=== PATIENT | female | born 1955 | race Caucasian/White ===

== ENCOUNTER 2016-12-06 16:27 | Observation (INO) ==
[2016-12-06] MEDS ORDERED: 0.9 % SODIUM CHLORIDE 2,000 ML IV ONE (16:54)
[2016-12-06] MEDS ORDERED: INSULIN LISPRO 1 UNIT/0.01 ML UNIT SQ ONE ×3 (16:56→17:47)
[2016-12-06] MEDS ORDERED: GLIMEPIRIDE 2 MG TABLET PO ONE (16:57)
[2016-12-06 17:38] LABS: Basophils # (Auto) 0 K/mcL (0.0-0.3); Basophils % (Auto) 0.3 % (0.0-2.0); Eosinophils # (Auto) 0.2 K/mcL (0.0-0.7); Eosinophils % (Auto) 1.5 % (0.0-7.0); Granulocytes % (Auto) 71.5 % (38.0-78.0); Lymphocytes # (Auto) 2.4 K/mcL (1.5-4.8); Lymphocytes % (Auto) 22.2 % (15.5-49.0); Mean Cell Volume 92.1 fL (80.0-100.0); Mean Corpuscular HGB Conc 33.5 g/dL (31.0-36.0); Mean Corpuscular Hemoglobin 30.8 pg (26.0-34.0); Monocytes # (Auto) 0.5 K/mcL (0.1-0.9); Monocytes % (Auto) 4.5 % (1.0-12.0); Platelet Count 230 K/mcL (140-440); RBC 4.91 M/mcL (4.00-5.20); Red Cell Distribution Width 12.2 % (11.5-14.5)
[2016-12-06 18:08] LABS: ALT/SGPT 9 U/l (0-40); Albumin 4.5 gm/dL (3.2-5.2); Albumin/Globulin Ratio 1.7 (1.0-2.3); Alkaline Phosphatase 94 U/L (39-117); Amylase 23 U/L (28-100); Blood Urea Nitrogen 21 mg/dl (8-23); Estimated Average Glucose(eAG) 260 mg/dL; Hemoglobin A1C 10.7 % HGB (4.0-6.0); Lipase 32 U/L (7-60)
--- NOTE | 2016-12-06 18:43 | Emergency Department Note ---
General Adult HPI - General Chief complaint: Blood Sugar Problem Stated complaint: High blood sugar Time Seen by Provider: 12/06/16 16:54 Source: patient Mode of arrival: ambulatory Limitations: no limitations - History of Present Illness HPI Narrative: 61-year-old female comes in at direction of her doctor because of blood sugar over 500 . Notes increased urination and polydipsia. She is having nausea dizziness and weakness. No vomiting or diarrhea, no upper respiratory symptoms chest pain or other concerning features. She has known type 2 diabetes but is only on metformin 500 once a day. She is currently doing physical therapy for some shoulder issue - Related Data Home Medications Medication Instructions Recorded Confirmed Baclofen [Lioresal] 20 mg PO TIDP PRN 02/26/16 12/06/16 DULoxetine HCL [Cymbalta] 60 mg PO DAILY 02/26/16 12/06/16 Divalproex Sodium [Depakote ER] 250 mg PO HS 02/26/16 12/06/16 Divalproex Sodium [Depakote] 500 mg PO BID 02/26/16 12/06/16 Levothyroxine Sodium [Levoxyl] 88 mcg PO DAILY 02/26/16 12/06/16 Lisinopril [Zestril] 2.5 mg PO HS 02/26/16 12/06/16 Pravastatin [Pravachol] 40 mg PO HS 02/26/16 12/06/16 Propranolol [Inderal] 20 mg PO BID 02/26/16 12/06/16 lamoTRIgine [LaMICtal] 150 mg PO BID 02/26/16 12/06/16 metFORMIN [Glucophage] 500 mg PO DAILY 02/26/16 12/06/16 traMADol [Ultram] 50 mg PO Q6HP PRN 02/26/16 12/06/16 Methylphenidate HCl 5 mg PO TID 12/06/16 12/06/16 clonazePAM [Clonazepam] 0.5 mg SL DAILY 12/06/16 12/06/16 Previous Rx's Medication Instructions Recorded HYDROcodone/APAP 5/325MG [[place] 1 tab PO Q6HP PRN #10 tablet 02/26/16 5/325Mg] Allergies Allergy/AdvReac Type Severity Reaction Status Date / Time Penicillins Allergy Unknown UNKOWN Verified 12/06/16 16:32 Sulfa (Sulfonamide Allergy Unknown UNKOWN Verified 12/06/16 16:32 Antibiotics) oxybutynin Allergy Verified 12/06/16 16:32 No to Iodine Allergy Unknown Unknown Uncoded 02/08/15 19:35 No to Latex Allergy Unknown Uncoded 02/08/15 19:35 Review of Systems All systems ED: reviewed and negative except as stated. Past Medical History - Past Medical History Attestation: Yes: The following information was validated with the patient. Medical history: Reports: diabetes, hyperlipidemia, hypertension, thyroid disease Surgical history ED: Reports: , cholecystectomy, knee replacement, orthopedic, other (knee surgery and carpal tunnel) Psychiatric history: Reports: bipolar, other (narcolepsy) - Social History smoking status: Current every day smoker Alcohol use: Reports: Rarely Physical Exam Overweight female no acute distress. Normocephalic atraumatic. Conjunctiva clear sclerae anicteric. No nasal discharge or congestion. Oropharynx is pink and moist. Neck is supple without lymphadenopathy thyromegaly or carotid bruit. Heart is regular rate and rhythm no murmurs appreciated. Lungs are clear to auscultation bilaterally without wheezes rales rhonchi or respiratory distress. Abdomen soft nontender nondistended. No peritoneal signs or guarding. No pedal edema. +2 radial pulse. Alert and oriented. No dysarthria ataxia or tremor - General Limitations: no limitations Course Vital Signs Temperature 97.4 F L 12/06/16 16:28 Pulse Rate 75 12/06/16 16:28 Respiratory Rate 20 12/06/16 16:28 Blood Pressure 133/63 12/06/16 16:28 Pulse Oximetry (%) 97 12/06/16 16:28 Temperature 97.4 F L 12/06/16 16:28 Pulse Rate 65 12/06/16 18:24 Respiratory Rate 20 12/06/16 16:28 Blood Pressure 135/65 12/06/16 18:24 Pulse Oximetry (%) 96 12/06/16 18:24 Medical Decision Making - Lab Data Lab results reviewed: Yes I reviewed the patient's lab results. Result diagrams: 12/06/16 17:02 12/06/16 17:02 Lab Results 12/06/16 12/06/16 Range/Units 17:02 17:02 WBC 10.7 (4.5-11.0) K/mcL RBC 4.91 (4.00-5.20) M/mcL Hgb 15.1 H (12.0-15.0) g/dL Hct 45.2 (36.0-48.0) % MCV 92.1 (80.0-100.0) fL MCH 30.8 (26.0-34.0) pg MCHC 33.5 (31.0-36.0) g/dL RDW 12.2 (11.5-14.5) % Plt Count 230 (140-440) K/mcL MPV 9.5 (7.4-10.4) fL Gran % 71.5 (38.0-78.0) % Lymph % (Auto) 22.2 (15.5-49.0) % [place] % (Auto) 4.5 (1.0-12.0) % Eos % (Auto) 1.5 (0.0-7.0) % Baso % (Auto) 0.3 (0.0-2.0) % Gran # 7.7 (1.8-8.0) K/mcL Lymph # 2.4 (1.5-4.8) K/mcL [place] # 0.5 (0.1-0.9) K/mcL Eos # 0.2 (0.0-0.7) K/mcL Baso # 0 (0.0-0.3) K/mcL Sodium 131 L (133-145) mmol/L Potassium 4.5 (3.3-5.1) mmol/L Chloride 89 L (96-108) mmol/L Carbon Dioxide 20 L (22-30) mmol/L Anion Gap 22.0 H (8-16) BUN 21 (8-23) mg/dl Creatinine 0.9 (0.6-1.1) mg/dl GFR Calculation 69 Glucose 485 H* (70-105) mg/dL Hemoglobin A1c 10.7 H (4.0-6.0) % HGB Estim Average Glucose 260 mg/dL Calcium 9.8 (8.6-10.4) mg/dl Total Bilirubin 0.3 (0.0-1.0) mg/dL AST 17 (0-37) U/l ALT 9 (0-40) U/l Alkaline Phosphatase 94 (39-117) U/L Total Protein 7.2 (5.9-8.4) gm/dL Albumin 4.5 (3.2-5.2) gm/dL Globulin 2.7 (2.2-3.7) gm/dL Albumin/Globulin Ratio 1.7 (1.0-2.3) Amylase 23 L (28-100) U/L Lipase 32 (7-60) U/L arterial blood gas showed pH 7.39 PCO2 41 PO2 68 Disposition Clinical Impression: Hyperosmolar non-ketotic state in patient with type 2 diabetes mellitus, Hyponatremia Summary: Initial workup done with limited laboratory as patient's vital signs were stable and she was just feeling mildly ill. We initiated treatment for hyperglycemia with 5 units of Humalog, IV normal saline and started on glimepiride as she is insulin franklyn. She did have metformin this morning Her blood sugar only came down into the 400s with 5 units on recheck approximately an hour later, and so I gave her another 7 units. She received approximately 3 liters of normal saline during her stay in the ER Laboratory however shows hyperglycemia with significant electrolyte abnormalities consistent with hyperosmolar nonketotic state- her vital signs are stable but electrolyte abnormalities including hyponatremia and low bicarbonate are concerning. Her anion gap is elevated. ABG shows compensation and mild hypoxia. However in order to correct her blood sugar and electrolytes it will take some time- the patient is agreeable to coming in the hospital to sort this out and get her feeling better Discussed her case with Dr. Khan who agreed to accept the patient for further care- further workup and treatment per his direction Disposition: Xfer As Inpt ([facility]) Condition: Fair Referrals: Sandra Blake ARNP [Primary Care Provider] - Gemma Khan MD [Physician] -
--- NOTE | 2016-12-06 18:51 | XRay Report ---
CLINICAL INFORMATION: Hyperglycemia question infection COMPARISON: 11/21/2005 FINDINGS:The heart size, mediastinum and pulmonary vessels are unremarkable. The lungs are clear. There are no effusions. The bones and soft tissues are within normal limits. IMPRESSION: Normal chest. Interpreted and Authenticated by: Armando Hernandez 12/06/16
[2016-12-06 19:22] LABS: Appearance,Urine CLEAR; Bacteria,Urine 0 /hpf (0); Bilirubin,Urine NEG (NEG); Color,Urine STRAW; Glucose,Urine (UA) >=500 mg/dL (NEG); Leukocyte Esterase,Urine NEG /uL (NEG); Nitrate,Urine NEG (NEG); Protein,Urine NEG (NEG); Specific Gravity,Urine 1.031 (1.000-1.035); Urine Blood 0.03 mg/dL (<0.03); Urine Budding Yeast FEW /hpf (0); Urine RBC 2 /hpf (0-1); Urine Squamous Epithelial Cell 0 /hpf (0-4); Urine WBC 3 /hpf (0-4); Urobilinogen,Urine NEG (NEG)
--- NOTE | 2016-12-06 19:34 | Internal Med History&Physical ---
Medical - H&P: HPI Patient information: Note initiated : 12/06/16 at 7:31 pm Service Date, if different from initiated Date: [] Patient: Korina Ashley a 61 y/o F admitted on for High blood sugar. Chief Complaint: [] History of present illness: Ms. Ashley is a 61 year old female who presents to the ER because she was not feeling well since this AM. The patient has h/o DM, diagnosed over 10 yrs ago, and is on metformin 500mg qd. She notes that her glucose has been very well controlled and AM sugars were around 60-70, and PM around 140-160. Her last a1c was around 8-9 and before that between 6-7. This , she noted that her glucose level was > 500, she reviewed this with her PCP and was supposed to keep check and follow up with her pcp on thursday. She did run out of her testing strips unfortunately and did not know what her sugars were. She notes her glucose was slowly creeping up over the last 1-2 weeks. She was very thirsty over the last few days and therefore drank nearly gallon of juice and gallon of Milk. The patient this AM was not feeling well, nauseas and weak, with polyuria and polydipsia. She therefore presented to the ER for further evaluation. In the ER her glucose was > 500, Gap 22, elevated hydroxybutyrate 4.46, Positive ketones in the urine, A1c 10.6. Na 131. She was given IV Fluids and insulin and glimepiride and admitted to the hospital for further management. The patient notes she may have had a viral syndrome 2 weeks ago, but beyond that does not remember having any fevers or cough. She denies any new medication, last medication is methylphenidiate for narcolepsy around 6 months ago. ABG done in the ER after fluid resusitation and insulin showed ph 7.39/pco2 41/ po2 68, / bicarb 24 UA not suggestive of infection and X ray chest negative. Review of systems: CONSTITUTIONAL: No weight loss, fever, chills, but present weakness and fatigue. HEENT: Eyes: No visual loss, blurred vision, double vision or yellow sclerae. Ears, Nose, Throat: No hearing loss, sneezing, congestion, runny nose or sore throat. SKIN: No rash or itching. CARDIOVASCULAR: No chest pain, chest pressure or chest discomfort. No palpitations or edema. RESPIRATORY: No shortness of breath, cough or sputum. GASTROINTESTINAL: No anorexia, nausea, vomiting or diarrhea. No abdominal pain or blood. GENITOURINARY: Denies Burning on urination. Blood in urine, or foul smelling urine NEUROLOGICAL: No headache, dizziness, syncope, paralysis, tremors, numbness or tingling in the extremities. No change in bowel or bladder control. MUSCULOSKELETAL: Chr muscle, back pain, joint pain or stiffness. HEMATOLOGIC: No bleeding or bruising. No enlarged nodes PSYCHIATRIC: present history of depression or anxiety. ENDOCRINOLOGIC: No reports of sweating, cold or heat intolerance. BUT present polyuria and polydipsia. ALLERGIES: No history of asthma, hives, eczema or rhinitis. Medical - H&P: PMH Medical history: PMH DM Mucle aches Bipolar disorder Anxiety Narcolepsy HTN HLD Surgical history: C section cholecystectomy Rt TKA Left knee arthroscopy Pertinent family history: Mother, Sister DM, Dad likely had DM Mother with lukaemia and CHF. Social history: Smoker 22-24 Pack yr Denies etoh, recreational drug use. Medical - H&P: Meds Home Medications Medication Instructions Recorded Confirmed Type Baclofen [Lioresal] 20 mg PO TIDP PRN 02/26/16 12/06/16 History DULoxetine HCL [Cymbalta] 60 mg PO DAILY 02/26/16 12/06/16 History Divalproex Sodium [Depakote ER] 250 mg PO HS 02/26/16 12/06/16 History Divalproex Sodium [Depakote] 500 mg PO BID 02/26/16 12/06/16 History HYDROcodone/APAP 5/325MG [[place] 1 tab PO Q6HP PRN #10 tablet 02/26/16 12/06/16 Rx 5/325Mg] Levothyroxine Sodium [Levoxyl] 88 mcg PO DAILY 02/26/16 12/06/16 History Lisinopril [Zestril] 2.5 mg PO HS 02/26/16 12/06/16 History Pravastatin [Pravachol] 40 mg PO HS 02/26/16 12/06/16 History Propranolol [Inderal] 20 mg PO BID 02/26/16 12/06/16 History lamoTRIgine [LaMICtal] 150 mg PO BID 02/26/16 12/06/16 History metFORMIN [Glucophage] 500 mg PO DAILY 02/26/16 12/06/16 History traMADol [Ultram] 50 mg PO Q6HP PRN 02/26/16 12/06/16 History Methylphenidate HCl 5 mg PO TID 12/06/16 12/06/16 History clonazePAM [Clonazepam] 0.5 mg SL DAILY 12/06/16 12/06/16 History Allergies Allergy/AdvReac Type Severity Reaction Status Date / Time Penicillins Allergy Unknown UNKOWN Verified 12/06/16 16:32 Sulfa (Sulfonamide Allergy Unknown UNKOWN Verified 12/06/16 16:32 Antibiotics) oxybutynin Allergy Verified 12/06/16 16:32 No to Iodine Allergy Unknown Unknown Uncoded 02/08/15 19:35 No to Latex Allergy Unknown Uncoded 02/08/15 19:35 Medical - H&P: Exam - Constitutional Vitals: Temp Pulse Resp BP Pulse Ox 97.4 F L 65 20 135/65 96 12/06/16 16:28 12/06/16 18:24 12/06/16 16:28 12/06/16 18:24 12/06/16 18:24 Exam: GENERAL: The patient is a well-developed, well-nourished in no apparent distress. Is alert and oriented x3. VITAL SIGNS: Reviewed and as noted elsewhere. HEENT: Head is normocephalic and atraumatic. Extraocular muscles are intact. Pupils are equal, round, and reactive to light. Nares appeared normal. Mouth is well hydrated and without lesions. Mucous membranes are dry. NECK: Normal to inspection, Supple, No lymphadenopathy or thyromegaly. LUNGS: Air entry equal on both sides, no wheezing, crackles or rhonchi noted. No accessory muscles of respiration HEART: Regular rate and rhythm normal, S1 and S2 heard, no Gallop, S3 or Rub Noted, No Gross murmur heard. ABDOMEN: Soft, nontender, and nondistended. Positive bowel sounds. No hepatosplenomegaly was noted. EXTREMITIES: Without any cyanosis, clubbing, rash, lesions or edema. NEUROLOGIC: Cranial nerves II through XII are grossly intact. Motor and Sensory System Grossly Intact PSYCHIATRIC: Flat affect, but denies suicidal or homicidal ideations. SKIN: No ulceration or induration present. Medical - H&P: Reslt - Labs CBC & Chem 7: 12/06/16 17:02 12/06/16 17:02 Labs: Short CBC 12/06/16 Range/Units 17:02 WBC 10.7 (4.5-11.0) K/mcL Hgb 15.1 H (12.0-15.0) g/dL Hct 45.2 (36.0-48.0) % Plt Count 230 (140-440) K/mcL BMP 12/06/16 17:02 Sodium 131 L Potassium 4.5 Chloride 89 L Carbon Dioxide 20 L BUN 21 Creatinine 0.9 Glucose 485 H* Calcium 9.8 Liver Function 12/06/16 Range/Units 17:02 Total Bilirubin 0.3 (0.0-1.0) mg/dL AST 17 (0-37) U/l ALT 9 (0-40) U/l Alkaline Phosphatase 94 (39-117) U/L Albumin 4.5 (3.2-5.2) gm/dL Urine 12/06/16 Range/Units 18:35 Urine Color Straw Urine Appearance Clear Urine pH 5.0 (5.0-9.0) Ur Specific [place] 1.031 (1.000-1.035) Urine Protein Neg (NEG) mg/dL Urine Glucose (UA) >=500 A (NEG) mg/dL - ABG Interpretation Interpretation: normal Medical - H&P: A/P (1) Hyponatremia Current visit: Yes Status: Acute - Narrative A/P Narrative: Mild Diabetic Ketoacidosis Resolved in the ER Pseudo Hyponatremia Uncontrolled DM HTN HLD Narcolepsy Bipolar Disorder. This is a 61 yr pt with long standing DM, which as per the patient was in the past fairly well controlled, but now apparently has become uncontrolled Her A1c is > 10 She presents in the ER with mild DKA (elevated beta hydroxybutyrate/ Urine ketones) , which has now resolved, normal ABG, normal bicarb on abg, glucose < 300. Will observe her overnight and monitior glucose Resume oral diet Start on sulfonylureas, 1st dose given in the ER. Increase dose of metformin to 1000mg bid Etiology of sudden worsening of Glucose control unknown, no e/o infectious focus , The only medication change is Ritalin added 6 months ago. Resume home medications for other chr condition DVT hep sq Diet Diabetic Code full DM education as outpatient.
[2016-12-06] MEDS ORDERED: traMADol 50 MG TABLET PO PRN (19:43)
[2016-12-06] MEDS ORDERED: BACLOFEN 10 MG TABLET PO PRN (19:43)
[2016-12-06] MEDS ORDERED: ONDANSETRON 4 MG/2 ML VIAL IV PRN (19:43)
[2016-12-06] MEDS ORDERED: HYDROcodone/APAP 5/325MG TABLET PO PRN (19:43)
[2016-12-06] MEDS ORDERED: ACETAMINOPHEN 325 MG TABLET PO PRN (19:43)
[2016-12-06] MEDS ORDERED: DEXTROSE 50% 50 ML VIAL IV PRN (19:43)
[2016-12-06] MEDS: 0.9 % SODIUM CHLORIDE 1,000 ML IV SCH (19:51)
[2016-12-06] MEDS ORDERED: DIVALPROEX SODIUM 250 MG TAB.ER.24H PO SCH (21:00)
[2016-12-06] MEDS ORDERED: lamoTRIgine 150 MG TABLET PO SCH (21:00)
[2016-12-06] MEDS ORDERED: PROPRANOLOL 20 MG TABLET PO SCH (21:00)
[2016-12-06 21:03] LABS: Blood Urea Nitrogen 17 mg/dl (8-23)
[2016-12-06] MEDS: HEPARIN 5,000 UNIT/ML VIAL SQ SCH (22:55)
[2016-12-06] MEDS: NON FORMULARY MEDICATION 1 DOSE MISCELL (Divalproex Sodium [Depakote] 500 MG) PO SCH (22:55)
[2016-12-06] MEDS: FAMOTIDINE/PF 20 MG/2 ML VIAL IV SCH (22:56)
[2016-12-06] MEDS: INSULIN LISPRO 1 UNIT/0.01 ML UNIT SQ SCH (22:56)
[2016-12-06] MEDS: LISINOPRIL 5 MG TABLET PO SCH (22:57)
[2016-12-06] MEDS: SIMVASTATIN 20 MG TABLET PO SCH (22:57)
[2016-12-06] MEDS: 0.9 % SODIUM CHLORIDE 10 ML SYRINGE IV SCH (22:57)
[2016-12-07] MEDS: 0.9 % SODIUM CHLORIDE 1,000 ML IV SCH ×3 (03:53→19:03)
[2016-12-07] MEDS ORDERED: INSULIN LISPRO 1 UNIT/0.01 ML UNIT SQ ONE ×2 (04:02→17:47)
[2016-12-07 05:07] LABS: Mean Cell Volume 92.6 fL (80.0-100.0); Mean Corpuscular HGB Conc 34.1 g/dL (31.0-36.0); Mean Corpuscular Hemoglobin 31.6 pg (26.0-34.0); Platelet Count 184 K/mcL (140-440); RBC 4.17 M/mcL (4.00-5.20); Red Cell Distribution Width 12.2 % (11.5-14.5)
[2016-12-07 05:30] LABS: ALT/SGPT 6 U/l (0-40); Albumin 3.4 gm/dL (3.2-5.2); Albumin/Globulin Ratio 1.7 (1.0-2.3); Alkaline Phosphatase 70 U/L (39-117); Bilirubin,Direct < 0.2 mg/dL (0.0-0.3); Blood Urea Nitrogen 15 mg/dl (8-23); Gamma Glutamyl Transpeptidase 58 U/L (5-36); Magnesium 1.8 mg/dL (1.6-2.5); Uric Acid 4.6 mg/dL (2.5-8.0)
[2016-12-07] MEDS: 0.9 % SODIUM CHLORIDE 10 ML SYRINGE IV SCH ×3 (05:54→22:39)
[2016-12-07 06:44] LABS: Lymphocytes % 43 % (15-49); Monocytes % (Manual) 4 % (1-9); Platelet Estimate NORMAL (NORMAL); RBC Morphology NORMAL (NORMAL); Segmented Neutrophils % 53 % (38-78)
[2016-12-07] MEDS: LEVOTHYROXINE 88 MCG TABLET PO SCH (08:03)
[2016-12-07] MEDS: metFORMIN 500 MG TABLET PO SCH ×2 (08:03→17:12)
[2016-12-07] MEDS: glipiZIDE 2.5 MG TAB.XL.24H PO SCH (08:03)
[2016-12-07] MEDS: INSULIN LISPRO 1 UNIT/0.01 ML UNIT SQ SCH ×4 (08:44→21:16)
[2016-12-07] MEDS: FISH OIL 1,000 MG CAPSULE PO SCH ×2 (09:37→21:15)
[2016-12-07] MEDS: DULoxetine 30 MG CAPSULE PO SCH (09:37)
[2016-12-07] MEDS: FAMOTIDINE/PF 20 MG/2 ML VIAL IV SCH ×2 (09:37→21:16)
[2016-12-07] MEDS: HEPARIN 5,000 UNIT/ML VIAL SQ SCH ×2 (09:37→21:16)
[2016-12-07] MEDS: lamoTRIgine 100 MG TABLET PO SCH ×2 (09:37→21:16)
[2016-12-07] MEDS: clonazePAM 0.5 MG TABLET PO SCH (09:38)
[2016-12-07] MEDS: PROPRANOLOL 10 MG TABLET PO SCH ×2 (09:38→21:17)
[2016-12-07] MEDS: NON FORMULARY MEDICATION 1 DOSE MISCELL (Divalproex Sodium [Depakote] 500 MG) PO SCH (10:03)
--- NOTE | 2016-12-07 12:36 | Internal Med Progress Note ---
Medical - PN: Subj Patient information: Note initiated : 12/07/16 at 12:34 pm Service Date, if different from initiated Date: [] Patient: Korina Ashley a 61 y/o F admitted on 12/06/16 for High blood sugar. Chief Complaint: [] Interval history: 12/06/16 Ms. Ashley is a 61 year old female who presents to the ER because she was not feeling well since this AM.The patient has h/o DM, diagnosed over 10 yrs ago, and is on metformin 500mg qd. She notes that her glucose has been very well controlled and AM sugars were around 60-70, and PM around 140-160. Her last a1c was around 8-9 and before that between 6-7. This , she noted that her glucose level was > 500, she reviewed this with her PCP and was supposed to keep check and follow up with her pcp on thursday. She did run out of her testing strips unfortunately and did not know what her sugars were. She notes her glucose was slowly creeping up over the last 1-2 weeks. She was very thirsty over the last few days and therefore drank nearly gallon of juice and gallon of Milk. The patient this AM was not feeling well, nauseas and weak, with polyuria and polydipsia. She therefore presented to the ER for further evaluation. In the ER her glucose was > 500, Gap 22, elevated hydroxybutyrate 4.46, Positive ketones in the urine, A1c 10.6. Na 131. She was given IV Fluids and insulin and glimepiride and admitted to the hospital for further management. The patient notes she may have had a viral syndrome 2 weeks ago, but beyond that does not remember having any fevers or cough. She denies any new medication, last medication is methylphenidiate for narcolepsy around 6 months ago. ABG done in the ER after fluid resusitation and insulin showed ph 7.39/pco2 41/ po2 68, / bicarb 24 UA not suggestive of infection and X ray chest negative. 4/2 pt seen examined, doing well, able to tolerate po, but was feeling weak and dizzy this AM, she noted that she was nauseas this AM wondering if this was side effect of sudden dropping of blood glucose. No vomiting. Otherwise labs look ok, glucose ok, will monitor her on higher dose of metformin x 1 day and see how she does with glipizide. Pertinent ROS: Denies headache, dizziness Denies chest pain, palpitations Denies cough or shortness of breath Denies abdominal pain, present nausea but no vomiting. - Constitutional Vitals: Vital Signs Temp Pulse Resp BP Pulse Ox 96.3 F L 64 16 135/65 95 12/07/16 11:29 12/07/16 11:29 12/07/16 11:29 12/07/16 11:29 12/07/16 11:29 Period Temp Pulse Resp BP Sys/Loving Pulse Ox Last 24 Hr 96.3 F-97.9 F 63-65 16-16 104-156/58-84 95-97 Intake and Output 12/06/16 12/07/16 12/07/16 21:59 05:59 13:59 Intake Total 1650 / 1650 1860 / 1860 Output Total 150 / 150 1150 / 1150 400 / 400 Balance -150 / 1850 500 / 500 1460 / 1460 Weight 152 lb 9.6 oz Intake & Output: Intake & Output 12/06/16 12/07/16 12/07/16 21:59 05:59 13:59 Intake Total 1650 / 1650 1860 / 1860 Output Total 150 / 150 1150 / 1150 400 / 400 Balance -150 / 1850 500 / 500 1460 / 1460 Weight 152 lb 9.6 oz Intake: IV 1000 / 1000 1000 / 1000 Sodium Chloride 0.9% 1, 1000 / 1000 1000 / 1000 000 ml @ 125 mls/hr IV . Q8H [facility] Rx#:[id number] Oral 650 / 650 860 / 860 Output: Void Amount 150 / 150 1150 / 1150 400 / 400 Other: Meal tuna fish sandwich, tomato soup, crackers Breakfast Percent of Meal Consumed 100% 100% Feeding Ability Independent Exam: Constitutional; Afebrile, cooperative, alert, not in distress. Eyes- No icterus, Pupils equal, reactive, No periorbital swelling Ears- Ext ear normal, hearing normal to conversation. Neck- Midline trachea, supple Respiratory system: Air Entry equal on both sides, No crackles or wheezing, no rhonchi. CVS- Rate rhythm regular, S1,S2 heard, no gallop, no rub. Abdomen- Soft nontender abdomen, no organomegaly, no tenderness, no guarding or rigidity, [employer]- AOOx3, moving all extremities, no focal deficit noted. Medical - PN: Obj Da - Labs CBC & Chem 7: 12/07/16 03:48 12/07/16 03:48 Labs: Abnormal Lab Results 12/07/16 12/07/16 12/06/16 03:48 03:48 20:06 WBC Morphology Abnorm A Vacuolated Monocytes 1+ A Carbon Dioxide 21 L Glucose 261 H 201 H Calcium 8.2 L 8.5 L Phosphorus 2.6 L GGT 58 H Total Protein 5.4 L Globulin 2.0 L Triglycerides 555 H Meds: Medications Acetaminophen (Tylenol) 650 mg PO Q6HP PRN PRN Reason: PAIN/FEVER > 101 Last Admin: 12/07/16 03:55 Dose: 650 mg Acetaminophen/Hydrocodone Bitart ([place] 5/325mg) 1 tab PO Q6HP PRN PRN Reason: Pain Baclofen (Lioresal) 20 mg PO TIDP PRN PRN Reason: Pain Clonazepam (Klonopin) 0.5 mg PO DAILY [facility] Last Admin: 12/07/16 09:38 Dose: 0.5 mg Dextrose (Dextrose 50%) 0 ml IV UD PRN PRN Reason: Hypoglycemia Diagnostic Test (Pha) (Accu-Chek) 1 each FS ACHS [facility] Last Admin: 12/07/16 11:55 Dose: 1 each Divalproex Sodium (Depakote Er) 750 mg PO HS REG Duloxetine HCl (Cymbalta) 60 mg PO DAILY [facility] Last Admin: 12/07/16 09:37 Dose: 60 mg Famotidine (Pepcid) 20 mg IV Q12 REG Last Admin: 12/07/16 09:37 Dose: 20 mg Fish Oil (Fish Oil) 1,000 mg PO BID [facility] Last Admin: 12/07/16 09:37 Dose: 1,000 mg Glipizide (Glucotrol Xl) 2.5 mg PO ACB [facility] Last Admin: 12/07/16 08:03 Dose: 2.5 mg Heparin Sodium (Porcine) (Heparin) 5,000 unit SQ Q12 REG Last Admin: 12/07/16 09:37 Dose: 5,000 unit Sodium Chloride (Sodium Chloride 0.9%) 1,000 mls @ 125 mls/hr IV .Q8H [facility] Last Admin: 12/07/16 11:56 Dose: 125 mls/hr Insulin Human Lispro (Humalog) 0 unit SQ ACHS [facility] PRN Reason: Protocol Last Admin: 12/07/16 08:44 Dose: 2 unit Lamotrigine (Lamictal) 150 mg PO BID [facility] Last Admin: 12/07/16 09:37 Dose: 150 mg Levothyroxine Sodium (Synthroid) 88 mcg PO QAMAC [facility] Last Admin: 12/07/16 08:03 Dose: 88 mcg Lisinopril (Zestril) 2.5 mg PO [facility] Last Admin: 12/06/16 22:57 Dose: 2.5 mg Metformin [facility] ([facility]) [facility] Last Admin: 12/07/16 08:03 Dose: 1,000 mg Ondansetron HCl (Zofran) 4 mg IV Q6HP PRN PRN Reason: Nausea And Vomiting Methylphenidate Hcl (5 Mg Tab) 1 dose PO TID [facility] Last Admin: 12/07/16 09:46 Dose: Not Given Propranolol HCl (Inderal) 20 mg PO BID [facility] Last Admin: 12/07/16 09:38 Dose: 20 mg Simvastatin (Zocor) 20 mg PO [facility] Last Admin: 12/06/16 22:57 Dose: 20 mg Sodium Chloride (Saline Flush) 10 ml IV Q8 [facility] Last Admin: 12/07/16 12:08 Dose: Not Given Tramadol HCl (Ultram) 50 mg PO Q6HP PRN PRN Reason: Pain Medical - PN: A/P - Time Spent With Patient Total time spent is greater than 50% in coordination of care (as documented) at patient's floor/unit and/or counseling patient: (1) Hyponatremia Status: Acute Current Visit: Yes - Narrative A/P Narrative: Mild Diabetic Ketoacidosis Resolved in the ER Pseudo Hyponatremia, resolved Uncontrolled DM increased dose of metformin to 1gm bid, and add glipizide. May need to cut back metformin if unable to tolerate 1gm HTN BP ok, resume home meds HLD continue statin. Narcolepsy on methyl phenidate, resume home dose as appropriate. Bipolar Disorder. resume home meds. Nausea: Likely from drop in glucose, keep on h2 blockers, ondansetron prn. DVT hep sq Diet Diabetic Code full DM education as outpatient. Medical - PN: Qual - VTE Deep Vein Thrombosis/Pulmonary Embolism Present on Admission: No
[2016-12-07] MEDS ORDERED: DIVALPROEX SODIUM 250 MG TAB.ER.24H PO SCH (21:00)
[2016-12-07] MEDS: LISINOPRIL 5 MG TABLET PO SCH (21:15)
[2016-12-07] MEDS: SIMVASTATIN 20 MG TABLET PO SCH (21:15)
[2016-12-08] MEDS: 0.9 % SODIUM CHLORIDE 1,000 ML IV SCH ×2 (03:10→12:07)
[2016-12-08] MEDS: 0.9 % SODIUM CHLORIDE 10 ML SYRINGE IV SCH (04:24)
[2016-12-08] MEDS ORDERED: glipiZIDE 5 MG TABLET PO SCH (07:30)
[2016-12-08] MEDS: DULoxetine 30 MG CAPSULE PO SCH (07:41)
[2016-12-08] MEDS: clonazePAM 0.5 MG TABLET PO SCH (07:42)
[2016-12-08] MEDS: metFORMIN 500 MG TABLET PO SCH (07:43)
[2016-12-08] MEDS: lamoTRIgine 100 MG TABLET PO SCH (07:43)
[2016-12-08] MEDS: FAMOTIDINE/PF 20 MG/2 ML VIAL IV SCH (07:44)
[2016-12-08] MEDS: FISH OIL 1,000 MG CAPSULE PO SCH (07:44)
[2016-12-08] MEDS: HEPARIN 5,000 UNIT/ML VIAL SQ SCH (07:44)
[2016-12-08] MEDS: glipiZIDE 2.5 MG TAB.XL.24H PO SCH (07:45)
[2016-12-08] MEDS: PROPRANOLOL 10 MG TABLET PO SCH (07:45)
[2016-12-08] MEDS: LEVOTHYROXINE 88 MCG TABLET PO SCH (07:47)
[2016-12-08] MEDS: INSULIN LISPRO 1 UNIT/0.01 ML UNIT SQ SCH ×2 (08:40→12:07)
--- NOTE | 2016-12-08 11:11 | Discharge Summary ---
Medical - DS: Prov Patient information: Note initiated : 12/08/16 at 11:05 am Service Date, if different from initiated Date: [] Patient: Korina Ashley 61 y/o F admitted on 12/06/16 for High blood sugar. Chief Complaint: [] Date of admission: 12/06/16 19:41 Discharge date: 12/08/16 Primary care physician: [f_Reg Prim Care Provider] Admitting clinician: Gemma Khan Discharging clinician: Gemma Khan Medical - DS: Meds - Discharge Medications Prescriptions: Fish Oil 1,000 mg PO BID #60 capsule glipiZIDE [Glucotrol] 5 mg PO BIDAC #60 tablet metFORMIN HCL [Glucophage] 1,000 mg PO BIDAC #60 tablet Active and Home Medications: Home Medications Baclofen [Lioresal] 20 mg PO QHS 02/26/16 [History Confirmed 12/06/16 Last Taken 12/05/16 21:00] DULoxetine HCL [Cymbalta] 60 mg PO DAILY 02/26/16 [History Confirmed 12/06/16 Last Taken 12/06/16 08:00] Divalproex Sodium [Depakote ER] 250 mg PO HS 02/26/16 [History Confirmed Last Taken 12/05/16 21:00] HYDROcodone/APAP 5/325MG [[place] 5/325Mg] 1 tab PO Q6HP PRN #10 tablet 02/26/16 [ Rx Confirmed 12/06/16 Last Taken 11/08/16] Levothyroxine Sodium [Levoxyl] 88 mcg PO DAILY 02/26/16 [History Confirmed 12/06 Last Taken 12/06/16 08:00] Lisinopril [Zestril] 2.5 mg PO DAILY 02/26/16 [History Confirmed 12/06/16 Last Taken 12/06/16 08:00] Pravastatin [Pravachol] 40 mg PO HS 02/26/16 [History Confirmed 12/06/16 Last Taken 12/05/16 21:00] Propranolol [Inderal] 20 mg PO BID 02/26/16 [History Confirmed 12/06/16 Last Taken 12/06/16 08:00] lamoTRIgine [LaMICtal] 150 mg PO BID 02/26/16 [History Confirmed 12/06/16 Last Taken 12/06/16 08:00] metFORMIN [Glucophage] 500 mg PO DAILY 02/26/16 [History Confirmed 12/06/16 Last Taken 12/06/16 08:00] traMADol [Ultram] 50 mg PO Q6HP PRN 02/26/16 [History Confirmed 12/06/16 Last Taken 12/02/16] DULoxetine HCL [Cymbalta] 30 mg PO HS 12/06/16 [History Confirmed 12/06/16 Last Taken 12/05/16 21:00] Divalproex Sodium [Depakote ER] 500 mg PO HS 12/06/16 [History Confirmed Last Taken 12/05/16 21:00] Methylphenidate HCl 5 mg PO TID 12/06/16 [History Confirmed 12/06/16 Last Taken 12/06/16 13:00] clonazePAM [Clonazepam] 0.5 mg SL DAILY 12/06/16 [History Confirmed 12/06/16 Last Taken 12/04/16 08:00] Medical - DS: Hosp Hospital course: Mrs. Ashley is a 61 year old female who presents to the ER because she was not feeling well.The patient has h/o DM, diagnosed over 10 yrs ago, and is on metformin 500mg qd. She notes that her glucose has been very well controlled and AM sugars were around 60-70, and PM around 140-160. Her last a1c was around 8-9 and before that between 6-7. This , she noted that her glucose level was > 500, she reviewed this with her PCP and was supposed to keep check and follow up with her pcp on Thursday. She did run out of her testing strips unfortunately and did not know what her sugars were. She notes her glucose was slowly creeping up over the last 1-2 weeks. She was very thirsty over the last few days and therefore drank nearly gallon of juice and gallon of Milk. The patient this AM was not feeling well, nauseas and weak, with polyuria and polydipsia. She therefore presented to the ER for further evaluation. In the ER her glucose was > 500, Gap 22, elevated hydroxybutyrate 4.46, Positive ketones in the urine, A1c 10.6. Na 131. She was given IV Fluids and insulin and glimepiride and admitted to the hospital for further management. The patient notes she may have had a viral syndrome 2 weeks ago, but beyond that does not remember having any fevers or cough. She denies any new medication, last medication is methylphenidiate for narcolepsy around 6 months ago. ABG done in the ER after fluid resuscitation and insulin showed ph 7.39/pco2 41 / po2 68, / bicarb 24 UA not suggestive of infection and X ray chest negative. Pt was admitted to the hospital with mild DKA. Treated with IV fluids and insulin. Later changed to oral meds. DKA: Mild DKA resolved, On discharge her gap is normal, her glucose is still > 200 but < 250. She will be discharged on higher dose of metformin of 1000mg bid. as well as glipizide 5mg twice daily. She will keep her FS log and see her pcp as soon as possible as outpatient. PT also would benefit from DM education. HLD: TG was noted to be high, likely due to hyperglycemia. However given that it was 550, I have started her on fish oil in addition to her statin. She will need to have her TG level checked as outpatient in 3-4 weeks. The rest of the stay in the hospital was uneventful. The patients home medications have not been changed except as mentioned above. Discharge diagnosis: DKA, HYperglycemia. - Time Spent with Patient Total time spent providing and/or coordinating discharge services: Greater than 30 minutes Medical - DS: Exam - Constitutional Vitals: Vital Signs Temp Pulse Resp BP Pulse Ox 12/08/16 08:00 98.0 F 64 14 145/76 95 12/08/16 03:12 97.6 F 55 L 18 150/73 95 12/07/16 23:30 98.0 F 69 16 131/72 95 12/07/16 19:29 98.1 F 67 16 123/78 96 12/07/16 16:00 96.5 F L 64 16 133/70 95 12/07/16 11:29 96.3 F L 64 16 135/65 95 Intake and Output 12/07/16 12/08/16 12/08/16 21:59 05:59 13:59 Intake Total 2290 / 2290 1400 / 1400 Output Total 400 / 400 600 / 600 Balance 1890 / 1890 800 / 800 Intake: IV 890 / 890 1000 / 1000 Sodium Chloride 0.9% 1, 890 / 890 1000 / 1000 000 ml @ 125 mls/hr IV . Q8H REG Rx#:[id number] Oral 1400 / 1400 400 / 400 Output: Void Amount 400 / 400 600 / 600 Other: Meal tuna fish sandwich, applesauce Percent of Meal Consumed 100% Feeding Ability Independent # Voids 1 1 Weight 157 lb 157 lb Additional comments: Constitutional; Afebrile, cooperative, alert, not in distress. Eyes- No icterus, Pupils equal, reactive, No periorbital swelling Ears- Ext ear normal, hearing normal to conversation. Neck- Midline trachea, supple Respiratory system: Air Entry equal on both sides, No crackles or wheezing, no rhonchi. CVS- Rate rhythm regular, S1,S2 heard, no gallop, no rub. Abdomen- Soft nontender abdomen, no organomegaly, no tenderness, no guarding or rigidity, [employer]- AOOx3, moving all extremities, no focal deficit noted. Medical - DS: A/P - Patient/Caregiver Discharge Instructions Activity: increase activity as tolerated Diet: Consistent Carbohydrate Additional Instructions: Follow up with pcp within a 1 week Take medications as prescribed Go to ER if worsening condition. Monitor glucose at least twice a day for now, maintain a record till you are evaluated by your pcp. Prescriptions: Fish Oil 1,000 mg PO BID #60 capsule glipiZIDE [Glucotrol] 5 mg PO BIDAC #60 tablet metFORMIN HCL [Glucophage] 1,000 mg PO BIDAC #60 tablet - Problem Maintenance (1) Hyponatremia Status: Acute - Follow up Plan Follow up with: Sandra Blake ARNP [Primary Care Provider] - Disposition: Home, Self-Care Prognosis: Fair Rehab Potential: Fair I certify that the patient requires SNF services: No Overall status at discharge: patient is back to baseline Medical - DS: Qual - VTE Deep Vein Thrombosis/Pulmonary Embolism Present on Admission: No
== END 2016-12-08 13:30 | disposition home or self-care (01) ==
LOC: ED 16:27 → MEDSUR 16:27
PROVIDERS: ADMIT Internal Medicine; ATTEND Internal Medicine